=== PATIENT | female | born 1960 | race Caucasian/White ===

== ENCOUNTER 2021-09-03 13:04 | Emergency (ER) | payer BC ==
[~2021-09-03] VITALS: Ht 157.5 cm; Wt 90.9 kg
[2021-09-03 13:06] VITALS: BP 174/76
[2021-09-03] MEDS ORDERED: LOSA25TA13 (13:28)
== END 2021-09-03 15:29 | disposition home or self-care (01) ==
LOC: M ED 13:04
DX: S01.532A Puncture wound without foreign body of oral cavity, initial encounter (principal); X58.XXXA Exposure to other specified factors, initial encounter; Y92.9 Unspecified place or not applicable; Y93.9 Activity, unspecified; Y99.9 Unspecified external cause status; I10 Essential (primary) hypertension; F17.200 Nicotine dependence, unspecified, uncomplicated